=== PATIENT | female | born 1945 | race Caucasian/White ===

== ENCOUNTER 2017-02-20 09:36 | Day surgery (SDC) | payer MEDICARE, MEDICAID ==
[~2017-02-20 09:36] MED LIST: Lactated Ringers 1,000 ML IV SCH; Sodium Chloride 0.9% 10 ML Syringe FLUSH PRN
[2017-02-20] MEDS ORDERED: Midazolam 1 MG/ML 2 ML SDV ONE ×2 (10:46→12:20)
[2017-02-20] MEDS ORDERED: fentaNYL 250 MCG/5 ML SDV ONE (10:47)
[2017-02-20] MEDS ORDERED: Propofol 200 MG/20 ML SDV ONE ×2 (10:47→12:21)
[2017-02-20] MEDS ORDERED: fentaNYL 100 MCG/2 ML SDV ONE ×2 (10:49→12:20)
--- NOTE | 2017-02-20 10:52 | PCM.PN ---
- General Info Date of Service: 02/20/17 - Review of Systems Systems Review Comment:: 71 y/o female here for colonoscopy. She has had a large cecal polyp removed 1 year ago. She denies any current symptoms. She also has a family history of colon cancer in her mother. I have reviewed her recent H and P and there is no significant change from that at this time. I have discussed the proposed colonoscopy with the patient. She understands indications and risks and she agrees to proceed. - Patient Data Vitals - Most Recent: Last Vital Signs Temp 97.3 F 02/20/17 10:01 Pulse 92 02/20/17 10:01 Resp 14 02/20/17 10:01 BP 150/66 H 02/20/17 10:01 Pulse Ox 97 02/20/17 10:01 Weight - Most Recent: 84.822 kg Lab Results Last 24 Hours: Laboratory Results - last 24 hr 02/20/17 Range/Units 10:06 POC Glucose 182 H (65-110) mg/dl Med Orders - Current: Current Medications Lactated Ringer's (Ringers, Lactated) 1,000 mls @ 125 mls/hr IV ASDIRECTED TASH Last Admin: 02/20/17 10:29 Dose: 125 mls/hr Sodium Chloride (Saline Flush) 10 ml FLUSH ASDIRECTED PRN PRN Reason: Keep Vein Open - Problem List Review Problem List Initiated/Reviewed/Updated: Yes - Assessment Assessment:: History of colon polyps - Plan Plan:: colonoscopy
--- NOTE | 2017-02-20 11:24 | PCM.OPNOTE ---
- General Post-Op/Procedure Note Date of Surgery/Procedure: 02/20/17 Operative Procedure(s): Colonoscopy Findings: Moderate Sigmoid Diverticulosis No sign of residual polyp or other polyps Pre Op Diagnosis: History of colon polyps Post-Op Diagnosis: Diverticulosis Anesthesia Technique: MAC Primary Surgeon: Shiv Ann Pathology: none Output, Urine Amount: 0 EBL in mLs: 0 Complications: None Condition: Good Free Text/Narrative:: Intake & Output 02/19/17 02/20/17 02/20/17 22:59 06:59 14:59 Intake Total 700 Balance 700
[2017-02-20 13:55] VITALS: BP 122/51
--- NOTE | 2017-02-20 14:33 | OR ---
Date of Procedure: 02/20/2017 PREOPERATIVE DIAGNOSIS: History of colon polyps. POSTOPERATIVE DIAGNOSIS: Diverticulosis. OPERATION PERFORMED: Colonoscopy. INDICATIONS FOR SURGERY: This 71-year-old female who has a history of colon polyps including a large cecal polyp, which was removed using advanced endoscopic techniques 1 year ago. The patient has done well and comes for surveillance colonoscopy. FINDINGS: No polyps were seen on today's exam. Even careful examination of the cecum does not reveal any evidence of residual polyp in this area. The patient has a moderate degree of sigmoid diverticulosis, which appears uncomplicated. DESCRIPTION OF PROCEDURE: The patient was taken to the operating room. She was given intravenous sedation, and with her in left lateral decubitus position, a digital rectal exam was performed showing no rectal masses. The Olympus colonoscope was inserted into the rectum, retroflexed examination of the rectal canal was performed. The scope was then carefully advanced under direct visualization through the entire length of the colon until cecum was reached. Cecal acquisition was confirmed by noting the normal internal cecal anatomy including the appendiceal orifice and ileocecal valve. The cecum was carefully examined and no evidence of residual polyp was seen. The scope was then slowly withdrawn sequentially re-examining the colonic segments until the entire colon and rectum had been fully examined. The scope was removed. The patient was taken from the operating room in satisfactory condition. ESTIMATED BLOOD LOSS: Zero. COMPLICATIONS: None. PROGNOSIS: Good. SHAINA Ann MD /[id number]
== END 2017-02-20 12:32 | disposition home or self-care (01) ==
LOC: LL.SDS 09:36
PROVIDERS: ATTEND Surgery
DX: Z12.11 Encounter for screening for malignant neoplasm of colon (principal); Z86.010 Personal history of colon polyps; K57.30 Diverticulosis of large intestine without perforation or abscess without bleeding; E78.5 Hyperlipidemia, unspecified; E11.9 Type 2 diabetes mellitus without complications; Z90.49 Acquired absence of other specified parts of digestive tract; Z98.890 Other specified postprocedural states; Z79.84 Long term (current) use of oral hypoglycemic drugs; Z79.82 Long term (current) use of aspirin; Z88.8 Allergy status to other drugs, medicaments and biological substances; Z79.899 Other long term (current) drug therapy
CPT/HCPCS: 82962; G0105; J2250; J2704; J3010; J7120; 00810-QZ

== ENCOUNTER 2020-03-30 09:24 | Day surgery (SDC) | payer MEDICARE ==
[~2020-03-30 09:24] MED LIST changes: -Lactated Ringers 1,000 ML IV SCH; +Midazolam 1 MG/ML 2 ML SDV ONE; +Propofol 200 MG/20 ML SDV ONE
[2020-03-30] MEDS: Lactated Ringers 1,000 ML IV SCH (10:19)
--- NOTE | 2020-03-30 11:00 | PCM.PN ---
- General Info Date of Service: 03/30/20 - Review of Systems Systems Review Comment:: 74-year-old female with history of colon polyps as well as family history of colon cancer in her mother here for surveillance colonoscopy. She had a large polyp removed from her cecum in the past. She states that her bowels have been working well and she has not noticed any rectal bleeding. Her recent history and physical is reviewed and no significant changes are noted. I have discussed the proposed colonoscopy with the patient. She agrees to proceed excepting risks. - Patient Data Vitals - Most Recent: Last Vital Signs Temp 97.4 F 03/30/20 10:20 Pulse 94 03/30/20 10:20 Resp 18 03/30/20 10:20 BP 135/66 03/30/20 10:20 Pulse Ox 94 L 03/30/20 10:20 Weight - Most Recent: 71.668 kg Lab Results Last 24 Hours: Laboratory Results - last 24 hr 03/30/20 Range/Units 10:24 POC Glucose 110 (65-110) mg/dl Med Orders - Current: Current Medications Lactated Ringer's (Ringers, Lactated) 1,000 mls @ 125 mls/hr IV ASDIRECTED TASH Last Admin: 03/30/20 10:19 Dose: 125 mls/hr Documented by: Sodium Chloride (Saline Flush) 10 ml FLUSH ASDIRECTED PRN PRN Reason: Keep Vein Open Discontinued Medications Midazolam HCl (Versed 1 Mg/Ml) Confirm Administered Dose 2 mg .ROUTE .STK-MED ONE Stop: 03/30/20 08:31 Propofol (Diprivan 20 Ml) Confirm Administered Dose 200 mg .ROUTE .STK-MED ONE Stop: 03/30/20 08:31 Sepsis Event Note - Focused Exam Vital Signs: Vital Signs Temp Pulse Resp BP Pulse Ox 03/30/20 10:20 97.4 F 94 18 135/66 94 L - Problem List Review Problem List Initiated/Reviewed/Updated: Yes - Assessment Assessment:: History of colon polyps Family history of colon cancer - Plan Plan:: Colonoscopy
[2020-03-30] MEDS ORDERED: Propofol 200 MG/20 ML SDV ONE (11:01)
[2020-03-30] MEDS ORDERED: Midazolam 1 MG/ML 2 ML SDV ONE (11:01)
--- NOTE | 2020-03-30 11:44 | PCM.OPNOTE ---
- General Post-Op/Procedure Note Date of Surgery/Procedure: 03/30/20 Operative Procedure(s): Colonoscopy Findings: Moderate Sigmoid Diverticulosis No sign of residual polyp Pre Op Diagnosis: history of colon polyps Post-Op Diagnosis: Sigmoid Diverticulosis Anesthesia Technique: MAC Primary Surgeon: Shiv Ann Pathology: none EBL in mLs: 0 Complications: None Condition: Good
--- NOTE | 2020-03-30 12:48 | OR ---
Date of Procedure: 03/30/2020 PREOPERATIVE DIAGNOSIS: History of colon polyps. POSTOPERATIVE DIAGNOSIS: Sigmoid diverticulosis. OPERATION PERFORMED: Colonoscopy. INDICATIONS FOR SURGERY: This 74-year-old female has a history of colon polyps including a large polyp that was removed from her cecum in the past. She comes today for surveillance colonoscopy. FINDINGS: No polyps were seen on today's exam. The patient's cecum appears clear of polyps at this time. She does have a moderate amount of diverticulosis in the sigmoid region, although this does not appear to be acutely inflamed, or otherwise, complicated. PROCEDURE IN DETAIL: The patient was taken to the operating room. She was given intravenous sedation, and with her in the left lateral decubitus position, digital rectal exam was performed showing no rectal masses. The Olympus colonoscope was inserted into the rectum. Retroflexed examination of the rectal canal was performed. The scope was then carefully advanced under direct visualization through the entire length of the colon until the cecum was reached. Cecal acquisition was confirmed by noting the normal internal cecal anatomy including the appendiceal orifice and the ileocecal valve. The light was also noted to transilluminate the abdominal wall in the right lower quadrant. The cecum was carefully examined and no sign of any residual polyp is noted at this time. The scope was then slowly withdrawn sequentially re- examining the colonic segments until the entire colon and rectum had been fully examined. The scope was removed and the patient was taken from the operating room in satisfactory condition. ESTIMATED BLOOD LOSS: Zero. COMPLICATIONS: None. PROGNOSIS: Good. SHAINA Ann MD /[id number]
[2020-03-30 15:43] VITALS: BP 148/72; PULSE 80
== END 2020-03-30 13:04 | disposition home or self-care (01) ==
LOC: LL.SDS 09:24
PROVIDERS: ATTEND Surgery
DX: Z12.11 Encounter for screening for malignant neoplasm of colon (principal); K57.30 Diverticulosis of large intestine without perforation or abscess without bleeding; I10 Essential (primary) hypertension; E11.9 Type 2 diabetes mellitus without complications; E78.2 Mixed hyperlipidemia; I48.91 Unspecified atrial fibrillation; N28.9 Disorder of kidney and ureter, unspecified; Z79.899 Other long term (current) drug therapy; Z79.4 Long term (current) use of insulin; Z88.8 Allergy status to other drugs, medicaments and biological substances; Z86.010 Personal history of colon polyps; Z87.891 Personal history of nicotine dependence; Z80.0 Family history of malignant neoplasm of digestive organs
CPT/HCPCS: 00812; 82962; J2250; J2704; J7120